=== PATIENT | female | born 1930 | race Caucasian/White ===

== ENCOUNTER 2020-12-04 17:14 | Emergency (ER) | payer MEDICARE ==
[2020-12-04] MEDS ORDERED: ELIQUIS 5 MG TAB5 MG PO (18:20)
== END 2020-12-04 18:42 | disposition home or self-care (01) ==
LOC: ER1 17:14
DX: I82.4Z2 Acute embolism and thrombosis of unspecified deep veins of left distal lower extremity (principal); Z90.710 Acquired absence of both cervix and uterus; Z88.7 Allergy status to serum and vaccine
CPT/HCPCS: 80053; 85025; 85379; 85610; 85730; 99283

== ENCOUNTER → 2020-12-05 | Outpatient (CLI) | payer MEDICARE ==
[~2020-12-05] MED LIST: ELIQUIS 5 MG TAB5 MG PO
== END ==
LOC: US 09:00
DX: M79.605 Pain in left leg (principal); M71.22 Synovial cyst of popliteal space [Baker], left knee
CPT/HCPCS: 93971

== ENCOUNTER → 2020-12-11 | Outpatient (CLI) | payer MEDICARE | LOC: CT 08:30 | DX: R79.1 Abnormal coagulation profile (principal); Q27.8 Other specified congenital malformations of peripheral vascular system | CPT/HCPCS: 71275; Q9967 ==

== ENCOUNTER → 2021-04-10 | Outpatient (CLI) | payer MEDICARE | LOC: HEART 5 08:23 | DX: R06.02 Shortness of breath (principal); I27.20 Pulmonary hypertension, unspecified; R94.39 Abnormal result of other cardiovascular function study; I07.1 Rheumatic tricuspid insufficiency; I10 Essential (primary) hypertension; I42.2 Other hypertrophic cardiomyopathy | CPT/HCPCS: 93306 ==